=== PATIENT | male | born 1975 | race Caucasian/White ===

== ENCOUNTER 2016-10-22 19:57 | Emergency (ER) | payer OTHER ==
[~2016-10-22] VITALS: Ht 182.9 cm; Wt 86.2 kg
== END 2016-10-22 20:45 | disposition short-term general hospital (02) ==
LOC: ER 19:57
PROC: 0HQ0XZZ Repair Scalp Skin, External Approach (ICD-10-PCS; principal; 2016-10-22)
DX: S01.01XA Laceration without foreign body of scalp, initial encounter (principal); F17.210 Nicotine dependence, cigarettes, uncomplicated; Z98.890 Other specified postprocedural states; W20.8XXA Other cause of strike by thrown, projected or falling object, initial encounter

== ENCOUNTER 2017-01-14 18:06 | Emergency (ER) | payer OTHER | END 2017-01-14 19:00 | disposition short-term general hospital (02) | LOC: ER 18:06 → RAD 18:07 → ER 18:07 | DX: S61.243A Puncture wound with foreign body of left middle finger without damage to nail, initial encounter (principal); W45.0XXA Nail entering through skin, initial encounter; Z98.890 Other specified postprocedural states ==